=== PATIENT | male | born 2000 | race Caucasian/White ===

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

== ENCOUNTER 2025-02-17 19:56 | Emergency (ER) | payer OTHER ==
[~2025-02-17] VITALS: Ht 188 cm; Wt 63.0 kg
--- OUTSIDE RECORDS SUMMARY | 2025-02-17 20:03 | XMS ---
PreManage Notification: GERSON JEAN Security Digital Account Manager Events No recent Security Events currently on file CRITERIA MET - Group Notification CARE PROVIDERS There are no care providers on record at this time. Renetta has no Care Guidelines for this patient. Angélica VISIT COUNT (12 MO.) 1 [facility] TOTAL 1 NOTE: Visits indicate total known visits. ED/C VISIT TRACKING (12 MO.) 02/17/2025 19:57 [facility] TYPE: Emergency COMPLAINT: - MEDICAL CLEARENCE FOR SNF INPATIENT VISIT TRACKING (12 MO.) No inpatient visits to display in this time frame [email or web address]
[2025-02-17 20:27] VITALS: BP 166/78
== END 2025-02-17 20:27 | disposition home or self-care (01) ==
LOC: ED 19:56
DX: F19.90 Other psychoactive substance use, unspecified, uncomplicated (principal); F17.200 Nicotine dependence, unspecified, uncomplicated
CPT/HCPCS: 99284

== ENCOUNTER 2025-05-05 17:50 | Emergency (ER) | payer OTHER ==
[~2025-05-05] VITALS: Ht 188 cm; Wt 67.9 kg
--- OUTSIDE RECORDS SUMMARY | 2025-05-05 17:51 | XMS ---
PreManage Notification: GERSON JEAN Security Optometric Technologist Events No recent Security Events currently on file CRITERIA MET - Group Notification CARE PROVIDERS There are no care providers on record at this time. Renetta has no Care Guidelines for this patient. Angélica VISIT COUNT (12 MO.) 2 ASIM Brown TOTAL 2 NOTE: Visits indicate total known visits. ED/UCC VISIT TRACKING (12 MO.) 05/05/2025 17:51 [facility] TYPE: Emergency COMPLAINT: - MEDICAL CLEARANCE 02/17/2025 19:57 [facility] [place] TYPE: Emergency COMPLAINT: - MEDICAL CLEARENCE FOR [facility] DIAGNOSES: - Encounter for other administrative examinations - Nicotine dependence, unspecified, uncomplicated - Other psychoactive substance use, unspecified, uncomplicated INPATIENT VISIT TRACKING (12 MO.) No inpatient visits to display in this time frame [id number]
[2025-05-05 19:41] VITALS: BP 195/72
== END 2025-05-05 19:43 | disposition home or self-care (01) ==
LOC: ED 17:50
DX: Z02.89 Encounter for other administrative examinations (principal); F11.90 Opioid use, unspecified, uncomplicated; F17.200 Nicotine dependence, unspecified, uncomplicated
CPT/HCPCS: 99284